=== PATIENT | female | born 1970 | race Caucasian/White ===

== ENCOUNTER → 2024-02-02 06:33 | Outpatient (REF) | payer BC, SELFPAY | LOC: MRI 3T 06:33 | PROVIDERS: ATTENDING PHYSICIAN Psychiatry & Neurology Neurology; FAMILY PHYSICIAN Nurse Practitioner Family | DX: M54.12 Radiculopathy, cervical region (principal); M54.2 Cervicalgia | CPT/HCPCS: 72141 ==

== ENCOUNTER → 2024-08-11 15:17 | Outpatient (REF) | payer BC, SELFPAY | LOC: WDC 15:17 | PROVIDERS: ATTENDING PHYSICIAN Family Medicine | DX: Z12.31 Encounter for screening mammogram for malignant neoplasm of breast (principal) | CPT/HCPCS: 77063; 77067 ==

== ENCOUNTER → 2024-08-21 09:27 | Outpatient (REF) | payer BC, SELFPAY | LOC: WDC 09:27 | PROVIDERS: ATTENDING PHYSICIAN Family Medicine | DX: R92.8 Other abnormal and inconclusive findings on diagnostic imaging of breast (principal) | CPT/HCPCS: 76642 ==

== ENCOUNTER → 2024-08-24 06:33 | Day surgery (SDC) | payer BC, SELFPAY | LOC: GI 06:33 | PROVIDERS: ATTENDING PHYSICIAN Internal Medicine Gastroenterology | DX: Z12.11 Encounter for screening for malignant neoplasm of colon (principal); K64.8 Other hemorrhoids; D12.2 Benign neoplasm of ascending colon; C85.13 Unspecified B-cell lymphoma, intra-abdominal lymph nodes | CPT/HCPCS: 45385; 88305; 88341; 88342 ==

== ENCOUNTER 2025-02-08 06:20 | Day surgery (SDC) | payer BC, SELFPAY | END 2025-02-08 16:55 | disposition home or self-care (01) | LOC: GI 06:20 | PROVIDERS: ATTENDING PHYSICIAN Internal Medicine Gastroenterology | DX: K62.5 Hemorrhage of anus and rectum (principal); K63.3 Ulcer of intestine; K64.8 Other hemorrhoids; K63.5 Polyp of colon; K52.89 Other specified noninfective gastroenteritis and colitis; Z85.72 Personal history of non-Hodgkin lymphomas | CPT/HCPCS: 45385; 45380; 88305 ==

== ENCOUNTER → 2025-04-26 14:36 | Outpatient (REF) | payer BC, SELFPAY | LOC: HWRAD 14:36 | PROVIDERS: ATTENDING PHYSICIAN Family Medicine | DX: R94.6 Abnormal results of thyroid function studies (principal) | CPT/HCPCS: 76536 ==

== ENCOUNTER → 2025-06-02 10:01 | Outpatient (REF) | payer BC, SELFPAY | LOC: MRI 3T 10:01 | PROVIDERS: ATTENDING PHYSICIAN Internal Medicine Gastroenterology; FAMILY PHYSICIAN Family Medicine | DX: K63.3 Ulcer of intestine (principal) | CPT/HCPCS: 72197; 74183; A9585 ==

== ENCOUNTER → 2025-08-12 16:54 | Outpatient (REF) | payer BC, SELFPAY | LOC: WDC 16:54 | PROVIDERS: ATTENDING PHYSICIAN Family Medicine | DX: Z12.31 Encounter for screening mammogram for malignant neoplasm of breast (principal) | CPT/HCPCS: 77063; 77067 ==